=== PATIENT | female | born 1940 | race Caucasian/White ===

== ENCOUNTER 2019-01-23 17:28 | Emergency (ER) | payer MEDICARE ==
[~2019-01-23] VITALS: Ht 157.5 cm; Wt 77.1 kg
[2019-01-23 17:34] VITALS: BP_SYST 115
[2019-01-23] MEDS ORDERED: NACL 0.9% 1,000 ML IV ONE (18:00)
[2019-01-23 18:10] LABS: BASOPHILS % (AUTO) 0.4 % (0.0-2.0); EOSINOPHILS % (AUTO) 0.2 % (0.0-4.0); HEMOGLOBIN 11.7 g/dL (12.0-16.0); LYMPHOCYTES # (AUTO) 1.5 K/uL (1.0-5.5); LYMPHOCYTES % (AUTO) 12.6 % (20.5-51.5); MEAN CORPUSCULAR HEMOGLOBIN 28 pg (27-31); MEAN CORPUSCULAR HGB CONC 32 % (32-36); MEAN CORPUSCULAR VOLUME 87 fL (79.0-98.0); MONOCYTES # (AUTO) 0.8 K/uL (0.0-1.0); MONOCYTES % (AUTO) 6.5 % (1.7-9.3); NEUTROPHILS # (AUTO) 9.4 K/uL (1.8-7.7); NEUTROPHILS % (AUTO) 80.3 % (40.0-70.0); PLATELET COUNT (AUTO) 256 K/uL (130-430); RED BLOOD CELL COUNT(AUTO) 4.14 MIL/uL (4.2-6.2); RED CELL DISTRIBUTION WIDTH 14.8 % (9.0-15.0); WHITE BLOOD COUNT (AUTO) 11.7 K/uL (4.8-10.8)
[2019-01-23 18:20] LABS: ANION GAP 8 (5-15); CALCIUM 9.5 mg/dL (8.4-11.0); CHLORIDE 105 mmol/L (98-107); CREATININE 1.63 mg/dL (0.55-1.30); GLUCOSE 137 mg/dL (70-99); SODIUM SERUM 137 mmol/L (136-145); UREA NITROGEN, BLOOD 47 mg/dL (8-21)
[2019-01-23 18:22] LABS: INR 1.1 (0.8-1.2); PROTHROMBIN TIME 11.4 SECS (9.5-12.5)
[2019-01-23 18:24] LABS: ALANINE AMINOTRANSFERASE 48 U/L (12-78); ALBUMIN 3.3 g/dL (3.4-4.8); ASPARTATE AMINOTRANSFERASE 87 U/L (10-37); TOTAL BILIRUBIN 1.1 mg/dL (0.0-1.0)
[2019-01-23 18:25] LABS: ALCOHOL, BLOOD < 3 mg/dL (<10)
[2019-01-23] MEDS ORDERED: ASPIRIN 81 MG TAB.CHEW PO ONE (18:30)
[2019-01-23] MEDS ORDERED: ENOXAPARIN SODIUM 80 MG/0.8 ML SYRINGE SUBCUT ONE (19:00)
[2019-01-23] MEDS ORDERED: DIPHENHYDRAMINE INJ 50 MG/ML VIAL IVP ONE (19:45)
[2019-01-23] MEDS ORDERED: methylPREDNISolone SOD SUCC/PF 62.5 MG/ML VIAL IVP ONE (19:45)
[2019-01-23] MEDS ORDERED: TRIA15CR3 TP (19:47)
[2019-01-23] MEDS ORDERED: ALBMDI INH (19:47)
[2019-01-23] MEDS ORDERED: CARV12.548 PO (19:47)
[2019-01-23] MEDS ORDERED: FURO20TA4 PO (19:47)
[2019-01-23] MEDS ORDERED: SULF1TAB48 PO (19:47)
[2019-01-23] MEDS ORDERED: FLUT1DIS5 IH (19:47)
[2019-01-23] MEDS ORDERED: LOSA50TA3 PO (19:47)
[2019-01-23] MEDS ORDERED: [UNRECOGNIZED DRUG - CODE] TP (19:47)
[2019-01-23] MEDS ORDERED: GABA-529 PO (19:47)
[2019-01-23 19:56] LABS: BILIRUBIN,URINE NEGATIVE (NEGATIVE); BLOOD, URINE NEGATIVE (NEGATIVE); CLARITY/URINE CLEAR (CLEAR); COLOR,URINE YELLOW (YELLOW); GLUCOSE,URINE NEGATIVE (NEGATIVE); KETONES,URINE NEGATIVE (NEGATIVE); LEUKOCYTE ESTERASE ,URINE NEGATIVE (NEGATIVE); NITRITE, URINE NEGATIVE (NEGATIVE); PROTEIN URINE NEGATIVE (NEGATIVE); UROBILINOGEN,URINE 0.2 (0.2-1.0)
[2019-01-23] MEDS ORDERED: IOHEXOL 350 mgI/mL, 150 ML INFUS..BTL IV ONE (21:07)
[2019-01-24 02:59] VITALS: BP_SYST 138
== END 2019-01-24 02:59 | disposition short-term general hospital (02) ==
LOC: SED 17:28
DX: I21.4 Non-ST elevation (NSTEMI) myocardial infarction (principal); E11.9 Type 2 diabetes mellitus without complications; I10 Essential (primary) hypertension; Z90.49 Acquired absence of other specified parts of digestive tract; Z90.89 Acquired absence of other organs; Z79.82 Long term (current) use of aspirin; Z88.5 Allergy status to narcotic agent; Z88.8 Allergy status to other drugs, medicaments and biological substances
CPT/HCPCS: 36415; 70450; 71045; 71275; 80053; 81003; 82962; 84484; 85025; 85610; 85730; 93005; 96372; 96374; 96375; 99291; G0482; J1200; J1650; J2930; J7030; Q9967; 99285

== ENCOUNTER 2019-06-05 17:43 | Emergency (ER) | payer MEDICARE ==
[~2019-06-05] VITALS: Ht 165.1 cm; Wt 104.3 kg
[~2019-06-05 17:43] MED LIST: ALBMDI INH; CARV12.548 PO; FLUT1DIS5 IH; FURO20TA4 PO; GABA-529 PO; LOSA50TA3 PO; SULF1TAB48 PO; TRIA15CR3 TP; [UNRECOGNIZED DRUG - CODE] TP
[2019-06-05 17:47] VITALS: BP_SYST 145
--- NOTE | 2019-06-05 17:50 | NUR ---
Placed in room 03 . Placed on registered nurse cardiac telemetry, blood pressure machine and pulse oximeter. To gown for exam. Side rails up. Report given to Lydia ZULUAGA.
--- NOTE | 2019-06-05 17:55 | NUR ---
SAMANTHA Holt at bedside examining patient.
[2019-06-05] MEDS ORDERED: methylPREDNISolone SOD SUCC/PF 62.5 MG/ML VIAL IVP ONE (18:00)
[2019-06-05] MEDS ORDERED: IPRATROPIUM/ALBUTEROL SULFATE 3 ML AMPUL.NEB (DUONEB) INH ONE ×2 (18:00→18:15)
--- NOTE | 2019-06-05 18:00 | NUR ---
pt bib via BLS from home for increasing SOB. O2 sat was 92% on RA. Pt received a breathing tx during transport and reports feeling better. Current o2 sat is 94%. Expiratory wheezes auscultated. RR 24. Will continue to monitor
--- NOTE | 2019-06-05 18:07 | NUR ---
Pt currently receiving a breathing tx.
--- NOTE | 2019-06-05 18:10 | NUR ---
# 20 gauge angiocath placed to RAC. Use of asceptic technique. Opsite placed over site. Blood return noted. Blood for lab drawn from site. Flushed with 10 cc of normal saline. No evidence of infiltration noted. Patient tolerated well.
--- NOTE | 2019-06-05 18:21 | NUR ---
x-ray at the bedside.
[2019-06-05 18:23] LABS: BASOPHILS % (AUTO) 0.2 % (0.0-2.0); EOSINOPHILS % (AUTO) 0.3 % (0.0-4.0); HEMATOCRIT 34.4 % (36-48); HEMOGLOBIN 11.2 g/dL (12.0-16.0); LYMPHOCYTES # (AUTO) 3.1 K/uL (1.0-5.5); LYMPHOCYTES % (AUTO) 21.2 % (20.5-51.5); MEAN CORPUSCULAR HEMOGLOBIN 28 pg (27-31); MEAN CORPUSCULAR HGB CONC 33 % (32-36); MEAN CORPUSCULAR VOLUME 86 fL (79.0-98.0); MONOCYTES # (AUTO) 1.3 K/uL (0.0-1.0); MONOCYTES % (AUTO) 8.7 % (1.7-9.3); NEUTROPHILS # (AUTO) 10.2 K/uL (1.8-7.7); NEUTROPHILS % (AUTO) 69.6 % (40.0-70.0); PLATELET COUNT (AUTO) 262 K/uL (130-430); RED BLOOD CELL COUNT(AUTO) 3.99 MIL/uL (4.2-6.2); RED CELL DISTRIBUTION WIDTH 15.4 % (9.0-15.0); WHITE BLOOD COUNT (AUTO) 14.7 K/uL (4.8-10.8)
--- NOTE | 2019-06-05 18:34 | NUR ---
ER at bedside examining patient.
[2019-06-05 18:56] LABS: ANION GAP 8 (5-15); CALCIUM 8.6 mg/dL (8.4-11.0); CHLORIDE 102 mmol/L (98-107); CREATININE 0.92 mg/dL (0.55-1.30); GLUCOSE 157 mg/dL (70-99); POTASSIUM 3.7 mmol/L (3.5-5.1); SODIUM SERUM 137 mmol/L (136-145); UREA NITROGEN, BLOOD 34 mg/dL (8-21)
[2019-06-05 19:02] LABS: BILIRUBIN,URINE NEGATIVE (NEGATIVE); CLARITY/URINE CLEAR (CLEAR); COLOR,URINE YELLOW (YELLOW); GLUCOSE,URINE NEGATIVE (NEGATIVE); KETONES,URINE NEGATIVE (NEGATIVE); LEUKOCYTE ESTERASE ,URINE NEGATIVE (NEGATIVE); NITRITE, URINE NEGATIVE (NEGATIVE); PROTEIN URINE 2+ (NEGATIVE); UROBILINOGEN,URINE 0.2 (0.2-1.0)
[2019-06-05 19:05] LABS: BLOOD, URINE TRACE (NEGATIVE)
[2019-06-05 19:08] LABS: ALANINE AMINOTRANSFERASE 110 U/L (12-78); ALBUMIN 3.5 g/dL (3.4-4.8); ASPARTATE AMINOTRANSFERASE 49 U/L (10-37); TOTAL BILIRUBIN 1.5 mg/dL (0.0-1.0)
--- NOTE | 2019-06-05 19:12 | NUR ---
Rocephin IVPB currently infusing per MD order.
[2019-06-05] MEDS ORDERED: VANCOMYCIN HCL 1,000 MG in NS 250 ML IV ONE (19:15)
[2019-06-05] MEDS ORDERED: cefTRIAXone 1 GM IVPB PREMIX 50 ML IV ONE (19:15)
[2019-06-05] MEDS ORDERED: ENOXAPARIN SODIUM 100 MG/ML SYRINGE SUBCUT ONE (19:15)
[2019-06-05] MEDS ORDERED: AZITHROMYCIN 500 MG in NS 250 ML IV ONE (19:15)
[2019-06-05] MEDS ORDERED: OSELTAMIVIR PHOSPHATE 6 MG/1 ML, 60 ML SUSP PO ONE (19:15)
[2019-06-05 19:20] LABS: BACTERIA,URINE FEW /HPF (None Seen); MUCUS,URINE None Seen /LPF (None Seen); RBC,URINE 0-3 /HPF (0-3); WBC,URINE 0-3 /HPF (0-3)
--- NOTE | 2019-06-05 19:23 | NUR ---
Lovenox SQ given to MD order.
[2019-06-05] MEDS ORDERED: AZITHROMYCIN 500 MG/VIAL (ZITHROMAX) IV ONE (19:25)
--- NOTE | 2019-06-05 19:32 | NUR ---
Care endorsed to Tyesha ZULUAGA.
[2019-06-05] MEDS ORDERED: ATROPINE SULFATE 1 MG/10 ML SYRINGE IVP ONE (19:45)
[2019-06-05] MEDS ORDERED: OSELTAMIVIR PHOSPHATE 6 MG/1 ML, 60 ML SUSP ONE (19:58)
[2019-06-05] MEDS ORDERED: MAGNESIUM SULFATE 50 ML IV ONE (20:00)
--- NOTE | 2019-06-05 20:25 | NUR ---
B/P 200/130, P 58. Pt denies c/o C/P. Dr. Moulton notified. Pt to be medicated with HCTZ 12.5 mg PO.
[2019-06-05] MEDS ORDERED: HYDROCHLOROTHIAZIDE 25 MG TABLET (HCTZ) PO ONE (20:30)
--- NOTE | 2019-06-05 20:54 | NUR ---
Dr. Moulton at bedsides to update on POC.
[2019-06-05] MEDS ORDERED: VANCOMYCIN HCL 1000 MG/VIAL IV ONE (21:30)
--- NOTE | 2019-06-05 22:02 | NUR ---
[facility] states that they are unable to take a pt while on BiPAP. Dr. Moulton notified and states that pt may be taken off of BiPAP. RT notified and at bedside.
[2019-06-05 22:10] VITALS: BP_SYST 237
--- NOTE | 2019-06-05 22:10 | NUR ---
Patient to be transferred to [facility]. Is being transferred due to request of insurance. Receiving facility has accepting physician and available space. ER physician has signed transfer form. Patient or responsible alliance party has agreed to transfer and signed form. Patient belongings inventoried and will be sent with patient. Copy of nursing notes, lab reports, EKG, Physicians Orders and X-rays to be sent with patient. Report called to MARGARETH Mejia at receiving facility. Receiving physician is Dr. Nguyễn. Pt leaves via stretcher in c/o [facility] ambulance in stable condition.
== END 2019-06-05 22:10 | disposition short-term general hospital (02) ==
LOC: SED 17:43
DX: J18.9 Pneumonia, unspecified organism (principal); R06.02 Shortness of breath; R79.89 Other specified abnormal findings of blood chemistry; J45.909 Unspecified asthma, uncomplicated; I10 Essential (primary) hypertension; Z88.0 Allergy status to penicillin; Z88.1 Allergy status to other antibiotic agents; Z88.8 Allergy status to other drugs, medicaments and biological substances; Z88.6 Allergy status to analgesic agent; Z79.899 Other long term (current) drug therapy
CPT/HCPCS: 36415; 71045; 80053; 81000; 83605; 83880; 84484; 85025; 87040; 87086; 93005; 94640; 96365; 96366; 96368; 96375; 99285; G9035; J0456; J0696; J1650; J2930; J3370; J3475; J7620

== ENCOUNTER 2020-11-15 06:08 | Emergency (ER) | payer MEDICARE ==
[~2020-11-15] VITALS: Ht 160 cm; Wt 75.3 kg
[2020-11-15 06:08] VITALS: BP_SYST 187
[~2020-11-15 06:08] MED LIST changes: +ASPI-1457 PO; +MONT10TA33 PO; +OMEP20CA15 PO; +ROSU20TA32 PO
--- NOTE | 2020-11-15 06:08 | NUR ---
Patient to bed 6 for evaluation. Hooked to continuous winder hand.
[2020-11-15] MEDS ORDERED: ALBUTEROL SULFATE 0.083% 2.5 MG/3 ML VIAL.NEB INH ONE (06:30)
--- NOTE | 2020-11-15 06:45 | NUR ---
SAMANTHA Hammond at bedside examining patient.
--- NOTE | 2020-11-15 06:45 | NUR ---
CHEST XRAY DONE AT BEDSIDE BY TECH
[2020-11-15 06:50] LABS: BASOPHILS # (AUTO) 0.1 K/uL (0.0-0.2); BASOPHILS % (AUTO) 0.8 % (0.0-2.0); EOSINOPHILS # (AUTO) 0.2 K/uL (0.0-0.4); EOSINOPHILS % (AUTO) 2.2 % (0.0-4.0); HEMATOCRIT 28.2 % (36-48); HEMOGLOBIN 9.1 g/dL (12.0-16.0); LYMPHOCYTES # (AUTO) 1.1 K/uL (1.0-5.5); LYMPHOCYTES % (AUTO) 12.8 % (20.5-51.5); MEAN CORPUSCULAR HEMOGLOBIN 28 pg (27-31); MEAN CORPUSCULAR HGB CONC 32 % (32-36); MEAN CORPUSCULAR VOLUME 86 fL (79.0-98.0); MONOCYTES # (AUTO) 0.7 K/uL (0.0-1.0); MONOCYTES % (AUTO) 8.6 % (1.7-9.3); NEUTROPHILS # (AUTO) 6.5 K/uL (1.8-7.7); NEUTROPHILS % (AUTO) 75.6 % (40.0-70.0); PLATELET COUNT (AUTO) 230 K/uL (130-430); RED CELL DISTRIBUTION WIDTH 17.9 % (9.0-15.0); WHITE BLOOD COUNT (AUTO) 8.6 K/uL (4.8-10.8)
--- NOTE | 2020-11-15 06:50 | NUR ---
Breathing treatment at bedside done by RT
[2020-11-15 07:02] LABS: ANION GAP 12 (5-15); CALCIUM 8.9 mg/dL (8.4-11.0); CHLORIDE 106 mmol/L (98-107); GLUCOSE 144 mg/dL (70-99); POTASSIUM 3.7 mmol/L (3.5-5.1); SODIUM SERUM 142 mmol/L (136-145); UREA NITROGEN, BLOOD 27 mg/dL (8-21)
[2020-11-15 07:08] LABS: ALANINE AMINOTRANSFERASE 18 U/L (12-78); ALBUMIN 3.5 g/dL (3.4-4.8); ASPARTATE AMINOTRANSFERASE 23 U/L (10-37); TOTAL BILIRUBIN 1.7 mg/dL (0.0-1.0)
--- NOTE | 2020-11-15 07:10 | NUR ---
REPORT RECEIVED FROM CORI ZULUAGA
--- NOTE | 2020-11-15 07:40 | NUR ---
covid swab collected and sent to lab.
--- NOTE | 2020-11-15 07:42 | NUR ---
pt came into ER with complaint of shortness of breath. pt AAOX4.pt presenting with non productive cough. respiration rate 30 heart rate 67 oxygen saturation 96% on nasal canula 2 liters. Blood pressure elevated 191/93/.
[2020-11-15] MEDS ORDERED: FUROSEMIDE 40 MG/4 ML VIAL IVP ONE (07:45)
[2020-11-15] MEDS ORDERED: NITROGLYCERIN 1 INCH (GM) OINT. TP ONE (07:45)
--- NOTE | 2020-11-15 08:00 | NUR ---
Medication reconciliation completed with information provided by PT. Any prior medication reconciliation on file was reviewed and corrected.
[2020-11-15] MEDS ORDERED: IOHEXOL 350 mgI/mL, 150 ML INFUS..BTL IV ONE (08:22)
--- NOTE | 2020-11-15 08:27 | NUR ---
Patient transported to radiology via gurney, accompanied by staff
[2020-11-15 09:02] LABS: BILIRUBIN,URINE NEGATIVE (NEGATIVE); BLOOD, URINE NEGATIVE (NEGATIVE); CLARITY/URINE CLEAR (CLEAR); COLOR,URINE YELLOW (YELLOW); GLUCOSE,URINE NEGATIVE (NEGATIVE); KETONES,URINE NEGATIVE (NEGATIVE); LEUKOCYTE ESTERASE ,URINE NEGATIVE (NEGATIVE); NITRITE, URINE NEGATIVE (NEGATIVE); PROTEIN URINE 1+ (NEGATIVE); UROBILINOGEN,URINE 0.2 (0.2-1.0)
--- NOTE | 2020-11-15 10:51 | NUR ---
REPORT CALLED TO NILSA MONTGOMERY RN.
[2020-11-15 10:52] VITALS: BP_SYST 180
--- NOTE | 2020-11-15 10:54 | NUR ---
Patient to be transferred to [facility]. Is being transferred due to higher level of care. Receiving facility has accepting physician and available space. ER physician has signed transfer form. Patient or responsible republican has agreed to transfer and signed form. Patient belongings inventoried and will be sent with patient. Copy of nursing notes, lab reports, EKG, Physicians Orders and X-rays to be sent with patient. Report called to ULISES ZULUAGA at receiving facility. Receiving physician is DR. LANETTE BOOKER. [facility] [address] ambulance service has been called for transfer. ETA is NOW.
== END 2020-11-15 10:52 | disposition short-term general hospital (02) ==
LOC: SED 06:08
DX: I50.23 Acute on chronic systolic (congestive) heart failure (principal); I21.4 Non-ST elevation (NSTEMI) myocardial infarction; J81.0 Acute pulmonary edema; I10 Essential (primary) hypertension; E11.9 Type 2 diabetes mellitus without complications; I48.91 Unspecified atrial fibrillation; J45.909 Unspecified asthma, uncomplicated; Z88.0 Allergy status to penicillin; Z88.1 Allergy status to other antibiotic agents; Z88.8 Allergy status to other drugs, medicaments and biological substances; Z79.899 Other long term (current) drug therapy; Z20.822 Contact with and (suspected) exposure to COVID-19
CPT/HCPCS: 36415; 71045; 71275; 76376; 80053; 81003; 83605; 83735; 83880; 84484; 85025; 87040; 87426; 93005; 94640; 96374; 99285; J1940; J7613; Q9967

== ENCOUNTER 2021-10-12 12:06 | Emergency (ER) | payer MEDICARE ==
[~2021-10-12] VITALS: Ht 157.5 cm; Wt 72.1 kg
[~2021-10-12 12:06] MED LIST changes: +MONT-40 PO; -MONT10TA33 PO; -SULF1TAB48 PO; -[UNRECOGNIZED DRUG - CODE] TP
[2021-10-12 12:09] VITALS: BP_SYST 157
[2021-10-12] MEDS ORDERED: IPRATROPIUM/ALBUTEROL SULFATE 3 ML AMPUL.NEB (DUONEB) INH ONE (12:30)
[2021-10-12] MEDS ORDERED: ALBUTEROL SULFATE 0.083% 2.5 MG/3 ML VIAL.NEB INH ONE (12:30)
[2021-10-12] MEDS ORDERED: NITROGLYCERIN 1 INCH (GM) OINT. TD ONE (12:30)
[2021-10-12 12:55] LABS: BASOPHILS % (AUTO) 0.6 % (0.0-2.0); EOSINOPHILS # (AUTO) 0.2 K/uL (0.0-0.4); EOSINOPHILS % (AUTO) 2.1 % (0.0-4.0); HEMATOCRIT 27.7 % (36-48); HEMOGLOBIN 8.8 g/dL (12.0-16.0); LYMPHOCYTES # (AUTO) 1.1 K/uL (1.0-5.5); LYMPHOCYTES % (AUTO) 14.8 % (20.5-51.5); MEAN CORPUSCULAR HEMOGLOBIN 26 pg (27-31); MEAN CORPUSCULAR HGB CONC 32 % (32-36); MEAN CORPUSCULAR VOLUME 80 fL (79.0-98.0); MONOCYTES # (AUTO) 0.7 K/uL (0.0-1.0); MONOCYTES % (AUTO) 9.1 % (1.7-9.3); NEUTROPHILS # (AUTO) 5.5 K/uL (1.8-7.7); NEUTROPHILS % (AUTO) 73.4 % (40.0-70.0); PLATELET COUNT (AUTO) 212 K/uL (130-430); RED BLOOD CELL COUNT(AUTO) 3.46 MIL/uL (4.2-6.2); RED CELL DISTRIBUTION WIDTH 18.9 % (9.0-15.0); WHITE BLOOD COUNT (AUTO) 7.5 K/uL (4.8-10.8)
[2021-10-12 13:05] LABS: ANION GAP 9 (5-15); CALCIUM 8.2 mg/dL (8.4-11.0); CHLORIDE 104 mmol/L (98-107); CREATININE 1.46 mg/dL (0.55-1.30); GLUCOSE 105 mg/dL (70-99); POTASSIUM 4.4 mmol/L (3.5-5.1); SODIUM SERUM 137 mmol/L (136-145); UREA NITROGEN, BLOOD 35 mg/dL (8-21)
[2021-10-12 13:13] LABS: ALANINE AMINOTRANSFERASE 26 U/L (12-78); ALBUMIN 3.4 g/dL (3.4-4.8); ASPARTATE AMINOTRANSFERASE 25 U/L (10-37); TOTAL BILIRUBIN 1.8 mg/dL (0.0-1.0)
[2021-10-12 13:19] LABS: INR 1.2 (0.8-1.2); PROTHROMBIN TIME 12.4 SECS (9.5-12.5)
[2021-10-12] MEDS ORDERED: CEFEPIME 1 GM in D5W 50 ML IV ONE (13:45)
[2021-10-12] MEDS ORDERED: CEFEPIME 1 GM/VIAL (MAXIPIME) ONE (13:59)
[2021-10-12 14:02] LABS: BILIRUBIN,URINE NEGATIVE (NEGATIVE); CLARITY/URINE CLEAR (CLEAR); COLOR,URINE YELLOW (YELLOW); GLUCOSE,URINE NEGATIVE (NEGATIVE); KETONES,URINE NEGATIVE (NEGATIVE); LEUKOCYTE ESTERASE ,URINE NEGATIVE (NEGATIVE); NITRITE, URINE NEGATIVE (NEGATIVE); PROTEIN URINE 2+ (NEGATIVE); UROBILINOGEN,URINE 0.2 (0.2-1.0)
[2021-10-12 14:04] LABS: BLOOD, URINE TRACE (NEGATIVE)
[2021-10-12 14:08] LABS: BACTERIA,URINE FEW /HPF (None Seen); MUCUS,URINE 1+ /LPF (None Seen); RBC,URINE 0-3 /HPF (0-3); WBC,URINE 0-3 /HPF (0-3)
[2021-10-12] MEDS ORDERED: hydrALAZINE HCL 20 MG/ML VIAL IVP ONE (14:15)
[2021-10-12] MEDS ORDERED: FUROSEMIDE 40 MG/4 ML VIAL IVP ONE (19:45)
[2021-10-12 21:57] VITALS: BP_SYST 157
== END 2021-10-12 21:57 | disposition short-term general hospital (02) ==
LOC: SED 12:06
DX: J96.01 Acute respiratory failure with hypoxia (principal); I13.0 Hypertensive heart and chronic kidney disease with heart failure and stage 1 through stage 4 chronic kidney disease, or unspecified chronic kidney disease; I21.A1 Myocardial infarction type 2; I48.91 Unspecified atrial fibrillation; I10 Essential (primary) hypertension; E11.22 Type 2 diabetes mellitus with diabetic chronic kidney disease; N18.9 Chronic kidney disease, unspecified; I50.23 Acute on chronic systolic (congestive) heart failure; E24.9 Cushing's syndrome, unspecified; E11.9 Type 2 diabetes mellitus without complications; J45.909 Unspecified asthma, uncomplicated; Z88.0 Allergy status to penicillin; Z88.1 Allergy status to other antibiotic agents; Z88.6 Allergy status to analgesic agent; Z88.5 Allergy status to narcotic agent; Z88.8 Allergy status to other drugs, medicaments and biological substances; Z88.9 Allergy status to unspecified drugs, medicaments and biological substances; Z20.822 Contact with and (suspected) exposure to COVID-19
CPT/HCPCS: 36415; 70450; 71045; 71275; 76376; 80053; 81000; 83605; 83880; 84484; 85025; 85379; 85610; 87040; 87081; 87426; 93005; 93970; 94640; 94660; 96365; 96375; 99291; J0360; J0692; J1940; J7613; Q9967

== ENCOUNTER 2021-10-27 02:11 | Emergency (ER) | payer MEDICARE ==
[~2021-10-27] VITALS: Ht 160 cm; Wt 77.1 kg
[2021-10-27 02:20] VITALS: BP_SYST 172
[2021-10-27 02:48] LABS: BASOPHILS % (AUTO) 0.2 % (0.0-2.0); EOSINOPHILS # (AUTO) 0.1 K/uL (0.0-0.4); EOSINOPHILS % (AUTO) 0.4 % (0.0-4.0); HEMATOCRIT 30.2 % (36-48); HEMOGLOBIN 9.8 g/dL (12.0-16.0); LYMPHOCYTES # (AUTO) 0.9 K/uL (1.0-5.5); LYMPHOCYTES % (AUTO) 6.4 % (20.5-51.5); MEAN CORPUSCULAR HEMOGLOBIN 25 pg (27-31); MEAN CORPUSCULAR HGB CONC 32 % (32-36); MEAN CORPUSCULAR VOLUME 79 fL (79.0-98.0); MONOCYTES # (AUTO) 1.3 K/uL (0.0-1.0); MONOCYTES % (AUTO) 9.9 % (1.7-9.3); NEUTROPHILS % (AUTO) 83.1 % (40.0-70.0); PLATELET COUNT (AUTO) 182 K/uL (130-430); RED BLOOD CELL COUNT(AUTO) 3.84 MIL/uL (4.2-6.2); WHITE BLOOD COUNT (AUTO) 13.3 K/uL (4.8-10.8)
[2021-10-27 03:01] LABS: ANION GAP 6 (5-15); CALCIUM 8.4 mg/dL (8.4-11.0); CHLORIDE 93 mmol/L (98-107); CREATININE 1.25 mg/dL (0.55-1.30); GLUCOSE 114 mg/dL (70-99); POTASSIUM 3.5 mmol/L (3.5-5.1); SODIUM SERUM 130 mmol/L (136-145); UREA NITROGEN, BLOOD 39 mg/dL (8-21)
[2021-10-27 03:09] LABS: ALANINE AMINOTRANSFERASE 58 U/L (12-78); ASPARTATE AMINOTRANSFERASE 31 U/L (10-37); TOTAL BILIRUBIN 1.4 mg/dL (0.0-1.0)
[2021-10-27] MEDS ORDERED: MORPHINE 2 MG/ML INJ. SYRINGE IVP ONE (04:30)
[2021-10-27] MEDS ORDERED: KETAMINE 30 MG/3 ML SYRINGE IVP ONE (04:30)
[2021-10-27 10:12] VITALS: BP_SYST 156
== END 2021-10-27 10:12 | disposition short-term general hospital (02) ==
LOC: SED 02:11
DX: I24.9 Acute ischemic heart disease, unspecified (principal); M54.2 Cervicalgia; M25.511 Pain in right shoulder; R74.8 Abnormal levels of other serum enzymes; E11.9 Type 2 diabetes mellitus without complications; I10 Essential (primary) hypertension; Z88.0 Allergy status to penicillin; Z88.1 Allergy status to other antibiotic agents; Z88.5 Allergy status to narcotic agent; Z88.6 Allergy status to analgesic agent; Z88.8 Allergy status to other drugs, medicaments and biological substances; Z88.9 Allergy status to unspecified drugs, medicaments and biological substances
CPT/HCPCS: 36415; 70450-TC; 70490; 71045; 72125-TC; 76376; 80053; 84484; 85025; 87081; 93005; 96374; 99285